=== PATIENT | male | born 2000 | race Caucasian/White ===

== ENCOUNTER 2024-07-05 08:31 | Emergency (ER) | payer OTHER, SELFPAY ==
--- NOTE | ~2024-07-05 | XR_ITS ---
XR wrist LT min 3V Ordering provider: Arina Phipps NP History: . injury,wrist pain . Comparison: None. FINDINGS: BONES: No acute fracture or dislocation. No definite scaphoid fracture. JOINT SPACES: Well maintained. SOFT TISSUES: Normal. IMPRESSION: No acute osseous abnormality left wrist. Reviewed, dictated and finalized at location A. PLOYMENT INSURANCE DIRECTOR
[2024-07-05 08:46] VITALS: BP 113/62; PULSE 83; RESP 16; TEMP 37.1; O2SAT 100
--- NOTE | 2024-07-05 08:49 | ED_ITS ---
HPI - Extremity Injury (Upper) General Chief Complaint: Extremity Problem,Nontraumatic Stated Complaint: LT Wrist Injury Time Seen by Provider: 07/05/24 09:10 Source: patient and RN notes reviewed Mode of arrival: ambulatory Limitations: no limitations History of Present Illness HPI narrative: 23-year-old male presents with concern for left wrist pain. Reports he was wrestling with his friend yesterday. He did not have pain at the time but later the wrist started tightening up in that it hurts this morning. He denies decreased strength, sensation, range of motion in the digits, wrist, hand. MD complaint: injury to: left and wrist Related Data Home Medications Medication Instructions Recorded Confirmed No Home Medications 07/05/24 07/05/24 Allergies Allergy/AdvReac Type Severity Reaction Status Date / Time milk AdvReac Mild Unknown Verified 07/05/24 08:46 COCKROACHES/RODENTS Allergy Intermediate Unknown Uncoded 07/05/24 08:46 PEANUTS Allergy Intermediate CHEST PAIN Uncoded 02/08/10 19:20 ALL GRASS Allergy Mild Unknown Uncoded 07/05/24 08:46 ALL TREES Allergy Mild Unknown Uncoded 07/05/24 08:46 ALL WEEDS Allergy Mild Unknown Uncoded 07/05/24 08:46 DUST/DUST MITES Allergy Mild Unknown Uncoded 07/05/24 08:46 Wheat Allergy Mild Unknown Uncoded 07/05/24 08:46 Review of Systems Review of Systems: CONSTITUTIONAL: Denies malaise, chills, sweats, or fever. SKIN: Denies rash or itching, open skin, laceration, abrasion, redness, warmth, swelling. MUSCULOSKELETAL: Reports left wrist pain NEUROLOGIC: Denies numbness, weakness All systems reviewed & are unremarkable except as noted in HPI and below PMFSH Comments At time of signature, agree with nursing past medical, surgical, social and family history. There is no relevant family history pertinent to the presenting complaint Exam Narrative: GENERAL: Well-appearing, well-nourished, and in no acute distress. HEAD: Normocephalic, atraumatic. EYES: PERRLA, conjunctivae clear NECK: Supple. CHEST: Speaks in full sentences. No respiratory distress. HEART: Regular rate and rhythm. Normal and equal peripheral pulses. EXTREMITIES: Left wrist, hand, digits have grossly normal strength and sensation, grossly normal range of motion. No edema or ecchymosis. General wrist tenderness. No open wounds, no skin tenting, no devitalized tissue or atrophy, no trophic changes, no obvious deformity, alignment normal, nearby joints and structures intact. Distal pulses palpable and equal bilaterally, skin warm, dry, pink. Capillary refill less than 3 seconds. SKIN: Warm, dry, no rash. NEURO: Alert and oriented x3. PSYCH: Normal mood and affect Course Course Emergency Course: Patient is aware of diagnosis, understands and agrees to treatment plan. Anticipatory guidance given. Patient agrees to follow-up as directed and is aware of reasons to seek care at the emergency department. Portions of this record may have been created with voice recognition software Level of Care: Express Care Visit Vital Signs Vital signs: Vital Signs Temperature 98.7 F 07/05/24 08:46 Pulse Rate 83 07/05/24 08:46 Respiratory Rate 16 07/05/24 08:46 Blood Pressure 113/62 07/05/24 08:46 Pulse Oximetry 100 07/05/24 08:46 Oxygen Delivery Room Air 07/05/24 08:46 Temperature 98.7 F 07/05/24 08:46 Pulse Rate 83 07/05/24 08:46 Respiratory Rate 16 07/05/24 08:46 Blood Pressure 113/62 07/05/24 08:46 Pulse Oximetry 100 07/05/24 08:46 Oxygen Delivery Room Air 07/05/24 08:46 Reviewed. MDM - Extremity Injury (Upper) MDM Narrative Medical decision making narrative: Patients injury and pain is consistent with musculoskeletal etiology. No signs of neurological or vascular compromise on exam. Compartments and tissues are soft without signs of compartment syndrome. Pain is felt appropriate for further evaluation on an outpatient basis. Critical Care Time Critical Care Time Critical Care Time: No Discharge Plan Discharge Clinical Impression: Sprain of wrist Patient Disposition: Home, Self-Care Condition: Stable Instructions: Wrist Sprain (ED) Additional Instructions: Avoid activities that cause pain until the pain subsides. Ice to the area 20-30 minutes 4-6 times a day Elevate above heart Elastic wrap or orthopedic splint as directed for comfort for the next 5-7 days Tylenol for lesser pain Ibuprofen regularly for the next 2-3 days for the inflammation Follow up with your primary care provider if the condition is not improving within 1 week. If the condition worsens with numbness, tingling, decrease sensation with weakness seek treatment in the emergency room immediately. Prescriptions: No Action No Home Medications Follow-up/Referrals: PHYSICIAN,MERCHANDISING REPRESENTATIVE [Primary Care Provider] - Time of Disposition: 09:20
== END 2024-07-05 09:24 | disposition home or self-care (01) ==
PROVIDERS: Emergency Provider Nurse Practitioner
DX: S63.502A Unspecified sprain of left wrist, initial encounter (principal); X58.XXXA Exposure to other specified factors, initial encounter; Y93.83 Activity, rough housing and horseplay
CPT/HCPCS: 73110; 99213; G0463